=== PATIENT | female | born 1980 | race African-American/Black ===

== ENCOUNTER 2020-09-11 13:23 | Emergency (ER) | payer SELFPAY ==
[2020-09-11 13:30] VITALS: BP 137/90
[2020-09-11] MEDS ORDERED: DEXAMETHASONE 4 MG TABLET PO ONE (13:59)
[2020-09-11] MEDS ORDERED: ONDANSETRON 4 MG TAB.RAPDIS PO ONE (13:59)
--- NOTE | 2020-09-11 14:06 | ER Document Report ---
ED Skin Rash/Insect Bite/Abscs - General Chief Complaint: Rash Stated Complaint: RASH Time Seen by Provider: 09/11/20 13:57 - HPI Notes: 40-year-old female presents to ED for evaluation of rash for the last 2 weeks. Also reports that she has started developing plaque-like new areas of rash to the face and scalp. 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 She is uncertain if she may have a fungal infection. Reports that she has not changed any soaps or detergents. Does report using lamp cleaner at a gym. Notes that she is itchy. Notes that the areas are continuing spread. States that they are itchy. Notes that she took her first 2 doses of Benadryl yesterday. Patient denies any difficulties breathing or handling her secretions. Denies any fevers or chills. Denies any recent travel. - Related Data Allergies/Adverse Reactions: aspirin Allergy (Verified 09/11/20 13:59) Penicillins Allergy (Verified 09/11/20 13:59) Sulfa (Sulfonamide Antibiotics) Allergy (Verified 09/11/20 13:59) Past Medical History - Social History Smoking Status: Current Every Day Smoker Family History: None - Medical History Medical History: Negative Review of Systems - Review of Systems Notes: Constitutional: Negative for fever. HENT: Negative for sore throat. Eyes: Negative for visual changes. Cardiovascular: Negative for chest pain. Respiratory: Negative for shortness of breath. Gastrointestinal: Negative for abdominal pain, vomiting or diarrhea. Genitourinary: Negative for dysuria. Musculoskeletal: Negative for back pain. Skin: + for rash. Neurological: Negative for headaches, weakness or numbness. 10 point ROS negative except as marked above and in HPI. Physical Exam - Vital signs Vitals: Temp Pulse Resp BP Pulse Ox 98.3 F 92 20 137/90 H 98 09/11/20 13:29 09/11/20 13:29 09/11/20 13:29 09/11/20 13:29 09/11/20 13:29 General: No acute distress. Alert and oriented x3. Sitting comfortably in a stretcher. Skin: Intact without any jaundice, pallor, or erythema. Warm and dry. Erythematous wheals with excoriations. No drainage. Plaques present to forehead as well as left side of neck with red rings. HEENT: Normocephalic, atraumatic. Pupils are equal round reactive to light and accommodation. Extraocular movements are intact. TMs without erythema or bulging. Canals are clear. Nares patent without any discharge. Teeth in good condition. Pharynx without erythema, edema, or exudates. No tonsillar enlargement. Uvula is midline. Airway is patent. No drooling or dyspnea. Neck: Supple with no lymphadenopathy. Full range of motion. Heart: Regular rate and rhythm. S1,S2. No murmurs, rubs, or gallops. Lungs: Clear to ausculation bilaterally. No wheezes, rhonchi, rales. Equal chest expansion. No retractions. Abdomen: Soft, nontender to palpation, nondistended. Positive bowel sounds in all 4 quadrants. No hepatosplenomegaly. No masses. No CVA tenderness bilaterally. Neuro: GCS 15. Moving all extremities without discomfort. Psych: Mood and affect appropriate. Course - Re-evaluation Re-evalutation: 09/11/20 14:22 40-year-old female presents to ED for evaluation of rash for the last 2 weeks. She took Benadryl for the first time yesterday. Uncertain as to what may have caused it. Also has presentation concerning for that of infection. Patient has no drooling or dyspnea. Presentation is consistent with that of allergic reaction with tinea infection. Patient will be started on ketoconazole as well as steroids and given pepcid. Advised to follow up with PCP and return to ED for new or worsening symptoms. Understands indications to return to ED. Understands course of management. Patient is in agreement with care plan. - Vital Signs Vital signs: Temp Pulse Resp BP Pulse Ox 98.3 F 92 20 137/90 H 98 09/11/20 13:29 09/11/20 13:29 09/11/20 13:29 09/11/20 13:29 09/11/20 13:29 - Laboratory Results Critical Laboratory Results Reviewed: No Critical Results - Radiology Results Critical Radiology Results Reviewed: No Critical Results Discharge - Discharge Clinical Impression: Rash and other nonspecific skin eruption, Tinea Condition: Stable Disposition: HOME, SELF-CARE Instructions: Acute Allergic Reaction ([facility]), Ringworm (Tinea Corporis) ([facility]) Prescriptions: Prednisone [Deltasone 20 mg Tablet] 2 tab PO DAILY 5 Days #10 tablet Ketoconazole 30 gm TP TID #1 tube Famotidine [Pepcid 20 mg Tablet] 20 mg PO DAILY #7 tablet Forms: Return to Work Referrals: [facility] [Provider Group] - Follow up as needed
== END 2020-09-11 14:10 | disposition home or self-care (01) ==
LOC: ER 13:23
DX: R21 Rash and other nonspecific skin eruption (principal); B35.9 Dermatophytosis, unspecified; F17.200 Nicotine dependence, unspecified, uncomplicated; Z88.6 Allergy status to analgesic agent; Z88.2 Allergy status to sulfonamides; Z88.0 Allergy status to penicillin
CPT/HCPCS: 99283; J8540; S0119